=== PATIENT | male | born 1955 | race Caucasian/White ===

== ENCOUNTER → 2025-03-11 | Outpatient (CLI) | payer MEDICARE, BC ==
[2025-03-11 15:39] LABS: Source, Urine Clean Catch
[2025-03-11 16:45] LABS: Bilirubin, Urine Neg (Neg); Color, Urine Yellow (P-Yellow); Glucose Qualitative, Urine 1+ (Neg); Ketones, Urine Neg (Neg); Leukocyte Esterase, Urine Neg (Neg); Protein, Urine Neg (Neg); Specific Gravity, Urine 1.010 (1.003-1.022); Urobilinogen, Urine NORM (Normal)
== END | disposition home or self-care (01) ==
LOC: LAB 15:37 → LAB SHORT 15:37
PROVIDERS: Urology
DX: N40.1 Benign prostatic hyperplasia with lower urinary tract symptoms (principal)
CPT/HCPCS: 81003